=== PATIENT | male | born 1995 | race African-American/Black ===

== ENCOUNTER 2016-06-29 10:49 | Emergency (ER) | payer OTHER ==
[2016-06-29] MEDS ORDERED: ACETAMINOPHEN 325 MG TAB As Ordered ONE (11:08)
--- NOTE | 2016-06-29 11:32 | REP ---
CHEST PA AND LATERAL: 06/29/2016. Clinical history: Cough, flu-like symptoms. Findings: There were no prior studies. The lungs are well inflated without pleural effusion, lateral pleural thickening, apical scarring or pneumothorax. There is no infiltrate, atelectasis or mass. Heart, mediastinal and hilar contours are normal. The aorta and airway were intact. Bony thorax unremarkable. No free air under the diaphragm. Impression: 1. Negative chest. Signed by Alex Hernandez MD 06/29/2016 08:19 P
--- NOTE | 2016-06-29 11:51 | EDDOCDS ---
Physician Documentation [facility] Name: Jabari Butterfield Age: 20 yrs Sex: Male : 1995 Arrival Date: 06/29/2016 Time: 10:49 Bed PR Private MD: NO PRIMARY PHYSICIAN, . Disposition: 06/29/16 11:38 Discharged to Home/Self Care. Impression: Viral infection of unspecified site, Nausea with vomiting, unspecified, Cough. - Condition is Stable. - Discharge Instructions: Nausea and Vomiting, Cough, Adult. - Prescriptions for ZOFRAN ODT 4 mg Oral - dissolve 1 tablet by ORAL route 3-4 times daily As needed do not chew, do not swallow whole; 20 tablet. benzonatate 200 mg Oral Capsule - take 1 capsule by ORAL route 3 times per day As needed DO NOT CHEW; 30 capsule. - Medication Reconciliation, Local Pharmacy Hours, Work Release Form - 1 day form. - Follow up: Emergency Department; When: As needed; Reason: Worsening of conditions. [facility]; When: Call to arrange an appointment; Reason: Recheck today's complaints, Continuance of care, To establish care. - Problem is new. - Symptoms are unchanged. - Notes: YOUR CHEST XRAY DID NOT SHOW SIGNS OF INFECTION OR PNEUMONIA. YOUR FLU AND STREP TESTS WERE NEGATIVE TODAY. PLEASE FOLLOW UP WITH PRIMARY CARE PROVIDER IN THE NEXT WEEK TO RECHECK YOUR SYMPTOMS. ANY WORSENING SYMPTOMS, PLEASE RETURN TO THE ER. Historical: - Allergies: no known allergies; - Home Meds: 1. none - PMHx: none; - PSHx: none; - Social history: Smoking status: Patient uses tobacco products, light tobacco smoker. No barriers to communication noted, The patient speaks fluent Uruguayan, Speaks appropriately for age. - Family history: Not pertinent. - : The pt / caregiver states he / she is not on anticoagulants. Home medication list is obtained from the patient. - Exposure Risk Screening:: None identified. Vital Signs: 06/29 10:52 BP 121 / 68; Pulse 86; Resp 18 S; Temp 99.8(O); Pulse Ox 100% on R/A; Weight 99.79 kg / gr2 220 lbs (R); Height 6 ft. 1 in. (185.42 cm) (R); Pain 6/10; 11:50 BP 128 / 68; Pulse 69; Resp 18; Temp 100.3(O); Pulse Ox 99% on R/A; Pain 2/10; mcp 10:52 Body Mass Index 29.03 (99.79 kg, 185.42 cm) gr2 MDM: 10:59 Strep Screen, Nursing ordered. dt4 11:03 Obtain sample by nasopharyngeal swab ordered. dt4 11:03 Acetaminophen Tablet 975 mg PO once ordered. dt4 11:04 -Influenza A&B Rapid Antigen - Nose Ordered. EDMS 11:04 Chest, 2 View (pa\E\lat) Ordered. EDMS 11:08 GATS (NEGATIVE STREP SCREEN) Ordered. EDMS 11:27 Financial registration complete. mm15 Administered Medications: 11:11 Drug: Acetaminophen 975 mg [acetaminophen 325 mg tablet (3 tabs)] Route: PO; ck1 Signatures: Dispatcher MedHost EDMS Lara Raman RN Arnoldo Seay mcp RN RN mlb1 Sapphire Schulz RN RN ck1 Brittanie Dominguez mm15 Nancy Childress, DAISY PA-C dt4 [facility]
--- NOTE | 2016-06-29 11:51 | EDDOCDS ---
Nurse's Notes [facility] Name: Jabari Butterfield Age: 20 yrs Sex: Male : 1995 Arrival Date: 06/29/2016 Time: 10:49 Bed PR Private MD: NO PRIMARY PHYSICIAN, . Diagnosis: Viral infection of unspecified site;Nausea with vomiting, unspecified;Cough Presentation: 06/29 10:56 Presenting complaint: Patient states: Fever/chills, body aches sore throat and N/V/D mlb1 began 4-5 days ago. Adult Sepsis Screening: The patient does not have new or worsening altered mentation. Patient's respiratory rate is less than 22. Systolic blood pressure is greater than 100. Patient has a qSOFA score of 0- Negative Sepsis Screen. Suicide/Homicide risk assessment- the patient denies having any suicidal and/or homicidal ideations and does not present with any other emotional, behavioral or mental health complaints. Status: Patient is not a health services coordinator or dependent. Transition of care: patient was not received from another setting of care. 10:56 Acuity: MAX Level 4 mlb1 10:56 Method Of Arrival: Walkin/Carried/Asstd mlb1 Triage Assessment: 10:57 General: Appears in no apparent distress, Behavior is appropriate for age, cooperative. mlb1 Pain: Location: "all over" Pain currently is 6 out of 10 on a pain scale. Pt Declines HIV testing. Neurological: No deficits noted. Derm: Skin is pink, warm & dry. Historical: - Allergies: no known allergies; - Home Meds: 1. none - PMHx: none; - PSHx: none; - Social history: Smoking status: Patient uses tobacco products, light tobacco smoker. No barriers to communication noted, The patient speaks fluent Faroese, Speaks appropriately for age. - Family history: Not pertinent. - : The pt / caregiver states he / she is not on anticoagulants. Home medication list is obtained from the patient. - Exposure Risk Screening:: None identified. Screenin:14 Screening information is obtained from the patient. Fall risk: No risks identified. ck1 Assistance ADL's: requires no assistance with activities of daily living. Abuse/DV Screen: The patient / caregiver reports he/she is: not in a situation that causes fear, pain or injury. Nutritional screening: No deficits noted. Advance Directives: Currently, there is no health care proxy. home support is adequate. Assessment: 11:13 General: Appears in no apparent distress, comfortable, Behavior is appropriate for age, ck1 cooperative. Pain: Location: generalized Pain currently is 7 out of 10 on a pain scale. Respiratory: Airway is patent Respiratory effort is unlabored, Respiratory pattern is regular, symmetrical. GI: Abdomen is non- distended Bowel sounds present X 4 quads. Abd is soft and non tender X 4 quads. Reports nausea, vomiting. Derm: Skin is intact, is healthy with good turgor, Skin is pink, warm & dry. Vital Signs: 10:52 BP 121 / 68; Pulse 86; Resp 18 S; Temp 99.8(O); Pulse Ox 100% on R/A; Weight 99.79 kg gr2 (R); Height 6 ft. 1 in. (185.42 cm) (R); Pain 6/10; 11:50 BP 128 / 68; Pulse 69; Resp 18; Temp 100.3(O); Pulse Ox 99% on R/A; Pain 2/10; mcp 10:52 Body Mass Index 29.03 (99.79 kg, 185.42 cm) gr2 Vitals: 10:52 Log In Time: June 29, 2016 at 10:52. gr2 11:07 Strep Screen is obtained and tested: Negative, a GATSNEG culture is ordered in [facility] ck1 and sent. ED Course: 10:51 Patient visited by Kelton Cabello. gr2 10:51 NO PRIMARY PHYSICIAN, . is Private Physician. gr2 10:51 Patient moved to Waiting gr2 10:53 Patient visited by Kelton Cabello. gr2 10:53 Patient moved to Pre RCE gr2 10:56 Patient visited by Arnoldo Valles, RN. mlb1 10:57 Patient visited by Arnoldo Valles, RN. mlb1 10:57 Triage Initiated mlb1 10:57 Patient moved to Triage 3 mlb1 10:59 [facility] dt4 10:59 Geeta Palomino MD is Attending Physician. dt4 10:59 Patient visited by Nancy Childress PA-C. dt4 11:11 GATS (NEGATIVE STREP SCREEN) Sent. ck1 11:12 Patient moved to TR3 ck1 11:12 -Influenza A&B Rapid Antigen - Nose Sent. ck1 11:15 The patient / caregiver is instructed regarding the plan of care and ED course. ck1 11:37 Chest, 2 View (pa\\E\\lat) Returned. EDMS 11:38 [facility] is Referral Physician. dt4 11:41 Patient moved to PR / [facility] 11:50 No IV's were initiated during this patient's visit. No procedures done that require [facility] assistance. Administered Medications: 11:11 Drug: Acetaminophen 975 mg [acetaminophen 325 mg tablet (3 tabs)] Route: PO; ck1 Order Results: Lab Order: -Influenza A&B Rapid Antigen - Nose; SPEC'M 06/29/16 11:11 Test: INFLUENZA A RAPID SCR by ICA; Value: INFLUENZA A RESULTS NEGATIVE; Status: F Test: INFLUENZA A RAPID SCR by ICA; Value: Comments:; Status: F Test: INFLUENZA B RAPID SCR by ICA; Value: INFLUENZA B RESULTS NEGATIVE; Status: F Test Note: ; The Influenza test is a direct rapid immunoassay for the qualitative detection of Influenza viral antigen. Cell culture (Viral Culture) testing should be considered to confirm NEGATIVE results and to assist in detecting other viruses that can provide similar clinical symptoms. Please contact the lab within 24 hours ([phone]) if confirmatory testing is desired. Radiology Order: Chest, 2 View (pa\\E\\lat) Test: Chest, 2 View (pa\\E\\lat) REASON FOR EXAMINATION: Cough; CHEST PA AND LATERAL: 06/29/2016.; ; Clinical history: Cough, flu-like symptoms.; ; Findings: There were no prior studies.; ; The lungs are well inflated without pleural effusion, lateral pleural thickening,; apical scarring or pneumothorax. There is no infiltrate, atelectasis or mass.; Heart, mediastinal and hilar contours are normal. The aorta and airway were; intact. Bony thorax unremarkable. No free air under the diaphragm.; ; Impression:; ; 1. Negative chest.; ; ; ; ; Unreviewed; Outcome: 11:13 Discharge ordered by Provider. dt4 11:38 Discharge ordered by Provider. dt4 11:50 Discharge Assessment: patient administered narcotics - no. The following High Risk [facility] Discharge criteria are identified: None. Discharged to home ambulatory. Condition: stable. Discharge instructions given to patient, Instructed on discharge instructions, follow up and referral plans. medication usage, diet, Demonstrated understanding of instructions, medications, Pt was receptive of discharge instructions/ teaching. Prescriptions given X 2. No special radiology studies were completed. Property sent home with patient. 11:51 Patient left the ED. [facility] Signatures: Dispatcher MedHost EDLara Mcclain RN RN mcp Barney, Michael B, RN RN mlb1 Sapphire Schulz RN RN ck1 Kelton Cabello gr2 Nancy Childress, PA-C PA-C dt4 MTDD
--- NOTE | 2016-07-01 12:51 | EDDOCDS ---
Physician Documentation [facility] Name: Jabari Butterfield Age: 20 yrs Sex: Male : 1995 Arrival Date: 06/29/2016 Time: 10:49 Bed PR Private MD: NO PRIMARY PHYSICIAN, . Disposition: 06/29/16 11:38 Discharged to Home/Self Care. Impression: Viral infection of unspecified site, Nausea with vomiting, unspecified, Cough. - Condition is Stable. - Discharge Instructions: Nausea and Vomiting, Cough, Adult. - Prescriptions for ZOFRAN ODT 4 mg Oral - dissolve 1 tablet by ORAL route 3-4 times daily As needed do not chew, do not swallow whole; 20 tablet. benzonatate 200 mg Oral Capsule - take 1 capsule by ORAL route 3 times per day As needed DO NOT CHEW; 30 capsule. - Medication Reconciliation, Local Pharmacy Hours, Work Release Form - 1 day form. - Follow up: Emergency Department; When: As needed; Reason: Worsening of conditions. Follow up: [facility]; When: Call to arrange an appointment; Reason: Recheck today's complaints, Continuance of care, To establish care. - Problem is new. - Symptoms are unchanged. - Notes: YOUR CHEST XRAY DID NOT SHOW SIGNS OF INFECTION OR PNEUMONIA. YOUR FLU AND STREP TESTS WERE NEGATIVE TODAY. PLEASE FOLLOW UP WITH PRIMARY CARE PROVIDER IN THE NEXT WEEK TO RECHECK YOUR SYMPTOMS. ANY WORSENING SYMPTOMS, PLEASE RETURN TO THE ER. Historical: - Allergies: no known allergies; - Home Meds: 1. none - PMHx: none; - PSHx: none; - Social history: Smoking status: Patient uses tobacco products, light tobacco smoker. No barriers to communication noted, The patient speaks fluent Northern Irish, Speaks appropriately for age. - Family history: Not pertinent. - : The pt / caregiver states he / she is not on anticoagulants. Home medication list is obtained from the patient. - Exposure Risk Screening:: None identified. Vital Signs: 06/29 10:52 BP 121 / 68; Pulse 86; Resp 18 S; Temp 99.8(O); Pulse Ox 100% on R/A; Weight 99.79 kg / gr2 220 lbs (R); Height 6 ft. 1 in. (185.42 cm) (R); Pain 6/10; 11:50 BP 128 / 68; Pulse 69; Resp 18; Temp 100.3(O); Pulse Ox 99% on R/A; Pain 2/10; mcp 10:52 Body Mass Index 29.03 (99.79 kg, 185.42 cm) gr2 MDM: 10:59 Strep Screen, Nursing ordered. dt4 11:03 Obtain sample by nasopharyngeal swab ordered. dt4 11:03 Acetaminophen Tablet 975 mg PO once ordered. dt4 11:04 -Influenza A&B Rapid Antigen - Nose Ordered. EDMS 11:04 Chest, 2 View (pa\E\lat) Ordered. EDMS 11:08 GATS (NEGATIVE STREP SCREEN) Ordered. EDMS 11:27 Financial registration complete. mm15 12:00 [facility] Payment Agreement was scanned into WebMD and attached to record. mm15 07/01 08:33 T-Sheet-- Draft Copy was scanned into WebMD and attached to record. lg Administered Medications: 06/29 11:11 Drug: Acetaminophen 975 mg [acetaminophen 325 mg tablet (3 tabs)] Route: PO; ck1 Signatures: Dispatcher MedHost EDLara Mcclain, RN RN mcp Karla Souza, Reg Reg lg Arnoldo Valles RN RN mlb1 Sapphire SchulzRN RN ck1 Brittanie Dominguez mm15 Nancy Childress PA-C PA-C dt4 The chart was reviewed and I authenticate all verbal orders and agree with the evaluation and treatment provided.Attachments: 12:00 [facility] Payment Agreement mm15 07/01 08:33 T-Sheet-- Draft Copy lg Chart Complete MTDD
--- NOTE | 2016-07-01 12:51 | EDDOCDS ---
Nurse's Notes [facility] Name: Jabari Butterfiedl Age: 20 yrs Sex: Male : 1995 Arrival Date: 06/29/2016 Time: 10:49 Bed PR Private MD: NO PRIMARY PHYSICIAN, . Diagnosis: Viral infection of unspecified site;Nausea with vomiting, unspecified;Cough Presentation: 06/29 10:56 Presenting complaint: Patient states: Fever/chills, body aches sore throat and N/V/D mlb1 began 4-5 days ago. Adult Sepsis Screening: The patient does not have new or worsening altered mentation. Patient's respiratory rate is less than 22. Systolic blood pressure is greater than 100. Patient has a qSOFA score of 0- Negative Sepsis Screen. Suicide/Homicide risk assessment- the patient denies having any suicidal and/or homicidal ideations and does not present with any other emotional, behavioral or mental health complaints. Status: Patient is not a career services coordinator or dependent. Transition of care: patient was not received from another setting of care. 10:56 Acuity: MAX Level 4 mlb1 10:56 Method Of Arrival: Walkin/Carried/Asstd mlb1 Triage Assessment: 10:57 General: Appears in no apparent distress, Behavior is appropriate for age, cooperative. mlb1 Pain: Location: "all over" Pain currently is 6 out of 10 on a pain scale. Pt Declines HIV testing. Neurological: No deficits noted. Derm: Skin is pink, warm & dry. Historical: - Allergies: no known allergies; - Home Meds: 1. none - PMHx: none; - PSHx: none; - Social history: Smoking status: Patient uses tobacco products, light tobacco smoker. No barriers to communication noted, The patient speaks fluent German, Speaks appropriately for age. - Family history: Not pertinent. - : The pt / caregiver states he / she is not on anticoagulants. Home medication list is obtained from the patient. - Exposure Risk Screening:: None identified. Screenin:14 Screening information is obtained from the patient. Fall risk: No risks identified. ck1 Assistance ADL's: requires no assistance with activities of daily living. Abuse/DV Screen: The patient / caregiver reports he/she is: not in a situation that causes fear, pain or injury. Nutritional screening: No deficits noted. Advance Directives: Currently, there is no health care proxy. home support is adequate. Assessment: 11:13 General: Appears in no apparent distress, comfortable, Behavior is appropriate for age, ck1 cooperative. Pain: Location: generalized Pain currently is 7 out of 10 on a pain scale. Respiratory: Airway is patent Respiratory effort is unlabored, Respiratory pattern is regular, symmetrical. GI: Abdomen is non- distended Bowel sounds present X 4 quads. Abd is soft and non tender X 4 quads. Reports nausea, vomiting. Derm: Skin is intact, is healthy with good turgor, Skin is pink, warm & dry. Vital Signs: 10:52 BP 121 / 68; Pulse 86; Resp 18 S; Temp 99.8(O); Pulse Ox 100% on R/A; Weight 99.79 kg gr2 (R); Height 6 ft. 1 in. (185.42 cm) (R); Pain 6/10; 11:50 BP 128 / 68; Pulse 69; Resp 18; Temp 100.3(O); Pulse Ox 99% on R/A; Pain 2/10; mcp 10:52 Body Mass Index 29.03 (99.79 kg, 185.42 cm) gr2 Vitals: 10:52 Log In Time: June 29, 2016 at 10:52. gr2 11:07 Strep Screen is obtained and tested: Negative, a GATSNEG culture is ordered in [facility] ck1 and sent. ED Course: 10:51 Patient visited by Kelton Cabello. gr2 10:51 NO PRIMARY PHYSICIAN, . is Private Physician. gr2 10:51 Patient moved to Waiting gr2 10:53 Patient visited by Kelton Cabello. gr2 10:53 Patient moved to Pre RCE gr2 10:56 Patient visited by Arnoldo Valles, RN. mlb1 10:57 Patient visited by Arnoldo Valles, RN. mlb1 10:57 Triage Initiated mlb1 10:57 Patient moved to Triage 3 mlb1 10:59 Nancy Childress [facility]-C [facility]. dt4 10:59 Geeta Palomino MD is Attending Physician. dt4 10:59 Patient visited by Nancy Childress PA-C. dt4 11:11 GATS (NEGATIVE STREP SCREEN) Sent. ck1 11:12 Patient moved to TR3 ck1 11:12 -Influenza A&B Rapid Antigen - Nose Sent. ck1 11:15 The patient / caregiver is instructed regarding the plan of care and ED course. ck1 11:37 Chest, 2 View (pa\\E\\lat) Returned. EDMS 11:38 [facility] is Referral Physician. dt4 11:41 Patient moved to PR1 / 25 mcp 11:50 No IV's were initiated during this patient's visit. No procedures done that require [facility] assistance. 12:00 [facility] Payment Agreement was scanned into Rapt and attached to record. mm15 07/01 08:33 T-Sheet-- Draft Copy was scanned into Rapt and attached to record. lg Administered Medications: 06/29 11:11 Drug: Acetaminophen 975 mg [acetaminophen 325 mg tablet (3 tabs)] Route: PO; ck1 Order Results: Lab Order: -Influenza A&B Rapid Antigen - Nose; SPEC'M 06/29/16 11:11 Test: INFLUENZA A RAPID SCR by ICA; Value: INFLUENZA A RESULTS NEGATIVE; Status: F Test: INFLUENZA A RAPID SCR by ICA; Value: Comments:; Status: F Test: INFLUENZA B RAPID SCR by ICA; Value: INFLUENZA B RESULTS NEGATIVE; Status: F Test Note: ; The Influenza test is a direct rapid immunoassay for the qualitative detection of Influenza viral antigen. Cell culture (Viral Culture) testing should be considered to confirm NEGATIVE results and to assist in detecting other viruses that can provide similar clinical symptoms. Please contact the lab within 24 hours ([phone]) if confirmatory testing is desired. Lab Order: GATS (NEGATIVE STREP SCREEN); SPEC'M 06/29/16 11:11 Test: GATS CULTURE (NEG STREP SCR); Value: GATS RESULT NEGATIVE FOR STREP PYOGENES (GROUP A); Status: F Test: GATS CULTURE (NEG STREP SCR); Value: <EXTERNAL COMMENT eCWMed> FULL REPORT IN LAB NOTES (eCW and Medent).; Status: F Radiology Order: Chest, 2 View (pa\\E\\lat) Test: Chest, 2 View (pa\\E\\lat) REASON FOR EXAMINATION: Cough; CHEST PA AND LATERAL: 06/29/2016.; ; Clinical history: Cough, flu-like symptoms.; ; Findings: There were no prior studies.; ; The lungs are well inflated without pleural effusion, lateral pleural thickening,; apical scarring or pneumothorax. There is no infiltrate, atelectasis or mass.; Heart, mediastinal and hilar contours are normal. The aorta and airway were; intact. Bony thorax unremarkable. No free air under the diaphragm.; ; Impression:; ; 1. Negative chest.; ; ; Signed by; Alex Hernandez MD 06/29/2016 08:19 P; Outcome: 11:13 Discharge ordered by Provider. dt4 11:38 Discharge ordered by Provider. dt4 11:50 Discharge Assessment: patient administered narcotics - no. The following High Risk [facility] Discharge criteria are identified: None. Discharged to home ambulatory. Condition: stable. Discharge instructions given to patient, Instructed on discharge instructions, follow up and referral plans. medication usage, diet, Demonstrated understanding of instructions, medications, Pt was receptive of discharge instructions/ teaching. Prescriptions given X 2. No special radiology studies were completed. Property sent home with patient. 11:51 Patient left the ED. [facility] Signatures: Dispatcher MedHost EDMS Lara Raman, RN RN Karla Raza, Bacilio Reg Arnoldo Valles RN RN mlb1 Sapphire SchulzRN RN ck1 Kelton Cabello gr2 Brittanie Dominguez mm15 Nancy Childress PA-C PA-C dt4 Chart Complete MTDD
--- NOTE | 2016-07-01 12:51 | EDDOCDS ---
Physician Documentation [facility] Name: Jabari Butterfield Age: 20 yrs Sex: Male : 1995 Arrival Date: 06/29/2016 Time: 10:49 Bed PR Private MD: NO PRIMARY PHYSICIAN, . Disposition: 06/29/16 11:38 Discharged to Home/Self Care. Impression: Viral infection of unspecified site, Nausea with vomiting, unspecified, Cough. - Condition is Stable. - Discharge Instructions: Nausea and Vomiting, Cough, Adult. - Prescriptions for ZOFRAN ODT 4 mg Oral - dissolve 1 tablet by ORAL route 3-4 times daily As needed do not chew, do not swallow whole; 20 tablet. benzonatate 200 mg Oral Capsule - take 1 capsule by ORAL route 3 times per day As needed DO NOT CHEW; 30 capsule. - Medication Reconciliation, Local Pharmacy Hours, Work Release Form - 1 day form. - Follow up: Emergency Department; When: As needed; Reason: Worsening of conditions. Follow up: [facility]; When: Call to arrange an appointment; Reason: Recheck today's complaints, Continuance of care, To establish care. - Problem is new. - Symptoms are unchanged. - Notes: YOUR CHEST XRAY DID NOT SHOW SIGNS OF INFECTION OR PNEUMONIA. YOUR FLU AND STREP TESTS WERE NEGATIVE TODAY. PLEASE FOLLOW UP WITH PRIMARY CARE PROVIDER IN THE NEXT WEEK TO RECHECK YOUR SYMPTOMS. ANY WORSENING SYMPTOMS, PLEASE RETURN TO THE ER. Historical: - Allergies: no known allergies; - Home Meds: 1. none - PMHx: none; - PSHx: none; - Social history: Smoking status: Patient uses tobacco products, light tobacco smoker. No barriers to communication noted, The patient speaks fluent Ethiopian, Speaks appropriately for age. - Family history: Not pertinent. - : The pt / caregiver states he / she is not on anticoagulants. Home medication list is obtained from the patient. - Exposure Risk Screening:: None identified. Vital Signs: 06/29 10:52 BP 121 / 68; Pulse 86; Resp 18 S; Temp 99.8(O); Pulse Ox 100% on R/A; Weight 99.79 kg / gr2 220 lbs (R); Height 6 ft. 1 in. (185.42 cm) (R); Pain 6/10; 11:50 BP 128 / 68; Pulse 69; Resp 18; Temp 100.3(O); Pulse Ox 99% on R/A; Pain 2/10; mcp 10:52 Body Mass Index 29.03 (99.79 kg, 185.42 cm) gr2 MDM: 10:59 Strep Screen, Nursing ordered. dt4 11:03 Obtain sample by nasopharyngeal swab ordered. dt4 11:03 Acetaminophen Tablet 975 mg PO once ordered. dt4 11:04 -Influenza A&B Rapid Antigen - Nose Ordered. EDMS 11:04 Chest, 2 View (pa\E\lat) Ordered. EDMS 11:08 GATS (NEGATIVE STREP SCREEN) Ordered. EDMS 11:27 Financial registration complete. mm15 12:00 [facility] Payment Agreement was scanned into [employer] and attached to record. mm15 07/01 08:33 T-Sheet-- Draft Copy was scanned into [employer] and attached to record. lg Administered Medications: 06/29 11:11 Drug: Acetaminophen 975 mg [acetaminophen 325 mg tablet (3 tabs)] Route: PO; ck1 Signatures: Dispatcher MedHost EDLara Mcclain, RN RN mcp Karla Souza, Reg Reg lg Arnoldo Valles RN RN mlb1 Sapphire SchulzRN RN ck1 Brittanie Dominguez mm15 Nancy Childress PA-C PA-C dt4 The chart was reviewed and I authenticate all verbal orders and agree with the evaluation and treatment provided.Attachments: 12:00 [facility] Payment Agreement mm15 07/01 08:33 T-Sheet-- Draft Copy lg Chart Complete MTDD
== END 2016-06-29 11:51 | disposition home or self-care (01) ==
LOC: M ED 10:49
DX: B34.9 Viral infection, unspecified (principal); R11.2 Nausea with vomiting, unspecified; R05 Cough; F17.210 Nicotine dependence, cigarettes, uncomplicated